=== PATIENT | male | born 1960 | race Two or more races ===

== ENCOUNTER 2021-06-28 08:38 | Emergency (ER) | payer OTHER ==
[~2021-06-28] VITALS: Ht 175.3 cm; Wt 59.0 kg
[2021-06-28 09:13] VITALS: BP 171/99
[2021-06-28] MEDS ORDERED: HYDROcodone-ACET 7.5/325MG TAB PO ONE (09:15)
[2021-06-28] MEDS ORDERED: IBUP800T27 PO (09:17)
== END 2021-06-28 10:12 | disposition home or self-care (01) ==
LOC: ER 08:38 → EDBD 08:38 → ER 10:12
DX: G89.29 Other chronic pain (principal); M54.50 Low back pain, unspecified; F17.210 Nicotine dependence, cigarettes, uncomplicated; R94.31 Abnormal electrocardiogram [ECG] [EKG]; Z59.00 Homelessness unspecified
CPT/HCPCS: 93005